=== PATIENT | female | born 1985 ===

== ENCOUNTER 2017-02-09 10:16 | Emergency (ER) | payer MEDICAID ==
[2017-02-09 10:28] VITALS: BMI 21.4
[2017-02-09 10:33] VITALS: RESP 18; TEMP 98.2; O2SAT 98
--- NOTE | 2017-02-09 11:44 | C.PDOC ---
History Of Present Illness 31 y/o female presents to the ED with complains of productive cough (-) hemoptysis, congestion, sore throat and subjective fever x 1 week. Has taken OTC cough medicine without relief. Positive sick contact at home with similar symptoms. Denies SOB, vomiting, diarrhea, headache, abdominal pain , or any other complaints. Time Seen by Provider: 02/09/17 11:00 Chief Complaint (Nursing): Flu-like Symptoms History Per: Patient, Family History/Exam Limitations: language barrier Onset/Duration Of Symptoms: Days Current Symptoms Are (Timing): Still Present Location Of Pain: Throat Sick Contacts (Context): Family Member(s) Associated Symptoms: Fever, Sore Throat, Cough, Nasal Congestion. denies: Vomiting, Diarrhea Severity: Mild Recent travel outside of the [place]: No Past Medical History Reviewed: Historical Data, Nursing Documentation, Vital Signs Vital Signs: Last Vital Signs Temp 98.2 F 02/09/17 10:41 Pulse 79 02/09/17 13:03 Resp 18 02/09/17 13:03 BP 122/72 02/09/17 13:03 Pulse Ox 98 02/09/17 14:42 Family History: States: Unknown Family Hx - Social History Hx Alcohol Use: No Hx Substance Use: No - Immunization History Hx Tetanus Toxoid Vaccination: No Hx Influenza Vaccination: No Hx Pneumococcal Vaccination: No Review Of Systems Except As Marked, All Systems Reviewed And Found Negative. Constitutional: Positive for: Fever ENT: Positive for: Nose Congestion, Throat Pain Respiratory: Positive for: Cough. Negative for: Shortness of Breath Gastrointestinal: Negative for: Vomiting, Diarrhea Neurological: Negative for: Headache Physical Exam - Physical Exam Appears: Non-toxic, No Acute Distress, Other (persistent cough noted) Skin: Warm, Dry, No Rash Head: Atraumatic, Normacephalic Eye(s): bilateral: Normal Inspection, EOMI Ear(s): Bilateral: Normal Nose: Normal Oral Mucosa: Moist Throat: Normal, No Erythema Neck: Normal ROM, Supple Chest: Symmetrical Cardiovascular: Rhythm Regular, No Murmur Respiratory: Normal Breath Sounds, No Rales, No Rhonchi, No Wheezing Gastrointestinal/Abdominal: Soft Extremity: Bilateral: Atraumatic Neurological/Psych: Oriented x3 ED Course And Treatment O2 Sat by Pulse Oximetry: 98 (on room air) Pulse Ox Interpretation: Normal Progress Note: Plan: CXR, flu swab, rapid strep. On re-evlauation, pt remains afebrile. CTA. No SOB. Insturcted to follow up with the clinic in 1-2 days or return to ER if symptoms persist or worsen. Disposition - Disposition Referrals: [facility] [Outside] Disposition: HOME/ ROUTINE Disposition Time: 12:29 Condition: STABLE Additional Instructions: Vaya a gillette mdico o la clnica en 2-5 root sin falta, para mas evaluacin. [place] los medicamentos barbara indicado. Volver a la noreen de emergencia en cualquier momento si los sntomas persisten o empeoran. Prescriptions: Benzonatate [Tessalon Perle] 100 mg PO TID PRN #15 capsule PRN Reason: Cough Azithromycin [Zithromax] 250 mg PO DAILY #6 tab Instructions: Upper Respiratory Infection (ED) Print Language: ALBANIAN - Clinical Impression Clinical Impression: Bronchitis - PA / INSURANCE JOB TITLES / Resident Statement MD/DO has reviewed & agrees with the documentation as recorded. - Scribe Statement The provider has reviewed the documentation as recorded by the Scribe George Amos All medical record entries made by the Scribe were at my direction and personally dictated by me. I have reviewed the chart and agree that the record accurately reflects my personal performance of the history, physical exam, medical decision making, and the department course for this patient. I have also personally directed, reviewed, and agree with the discharge instructions and disposition.
--- NOTE | 2017-02-09 12:06 | RAD ---
HISTORY: uri fever COMPARISON: No prior. TECHNIQUE: Chest PA and lateral FINDINGS: LUNGS: No active pulmonary disease. PLEURA: No significant pleural effusion identified. No pneumothorax apparent. CARDIOVASCULAR: Normal. OSSEOUS STRUCTURES: No significant abnormalities. VISUALIZED UPPER ABDOMEN: Normal. OTHER FINDINGS: None. IMPRESSION: No active disease.
[2017-02-09 13:04] VITALS: BP 122/72; PULSE 79
== END 2017-02-09 13:15 | disposition home or self-care (01) ==
LOC: C.ER 10:16 → SUPCPDRO 10:16 → C.ER 13:15
DX: J40 Bronchitis, not specified as acute or chronic (principal)